=== PATIENT | male | born 1960 | race American Indian/Alaskan Native ===

== ENCOUNTER 2017-03-10 11:05 | Inpatient (IN) | payer MEDICARE, OTHER ==
[~2017-03-10] VITALS: Ht 160 cm; Wt 86.2 kg
[2017-03-10] VITALS (10 sets, daily range): BP systolic 150–281
[2017-03-10] MEDS ORDERED: KETOROLAC TROMETHAMINE 30 MG VIAL IVP ONE (11:15)
[2017-03-10] MEDS ORDERED: hydrALAZINE HCL 20 MG/ML VIAL IVP ONE ×3 (11:15→13:15)
[2017-03-10] MEDS ORDERED: PROCHLORPERAZINE EDISYLATE 10 MG/2 ML VIAL IVP ONE (11:30)
[2017-03-10 11:42] LABS: BASOPHILS # (AUTO) 0.1 K/uL (0.0-0.2); BASOPHILS % (AUTO) 0.6 % (0.0-2.0); EOSINOPHILS # (AUTO) 0.2 K/uL (0.0-0.4); EOSINOPHILS % (AUTO) 2.3 % (0.0-4.0); HEMATOCRIT 39.3 % (36-54); LYMPHOCYTES # (AUTO) 1.1 K/uL (1.0-5.5); LYMPHOCYTES % (AUTO) 12.6 % (20.5-51.5); MEAN CORPUSCULAR HEMOGLOBIN 30 pg (27-31); MEAN CORPUSCULAR HGB CONC 33 % (32-36); MEAN CORPUSCULAR VOLUME 92 fL (79.0-98.0); MONOCYTES # (AUTO) 0.6 K/uL (0.0-1.0); MONOCYTES % (AUTO) 6.5 % (1.7-9.3); NEUTROPHILS # (AUTO) 7.1 K/uL (1.8-7.7); PLATELET COUNT (AUTO) 164 K/uL (130-430); RED BLOOD CELL COUNT(AUTO) 4.28 MIL/uL (4.2-6.2); RED CELL DISTRIBUTION WIDTH 13.9 % (9.0-15.0); WHITE BLOOD COUNT (AUTO) 9.1 K/uL (4.8-10.8)
[2017-03-10] MEDS ORDERED: LORazepam 2 MG/ML VIAL (FOR ER USE) IVP ONE (11:45)
[2017-03-10 11:55] LABS: POTASSIUM 3.8 mmol/L (3.5-5.1)
[2017-03-10 11:56] LABS: CALCIUM 8.2 mg/dL (8.4-11.0)
[2017-03-10 11:57] LABS: INR 1.1 (0.80-1.20); PROTHROMBIN TIME 11.9 SECS (9.5-12.5)
[2017-03-10 11:58] LABS: CREATININE 8.05 mg/dL (0.55-1.30); TOTAL BILIRUBIN 1.3 mg/dL (0.0-1.0)
[2017-03-10 11:59] LABS: ALBUMIN 3.7 g/dL (3.4-4.8); TOTAL PROTEIN, SERUM 7.6 g/dL (6.4-8.3)
[2017-03-10] MEDS ORDERED: NITROGLYCERIN 1 INCH (GM) OINT. TP ONE (12:00)
[2017-03-10] MEDS ORDERED: fentaNYL CITRATE/PF 100 MCG/2 ML AMP IVP ONE ×2 (13:00→16:15)
[2017-03-10] MEDS ORDERED: ONDANSETRON HCL 4 MG/2 ML VIAL IVP ONE (13:00)
[2017-03-10] MEDS ORDERED: NITROGLYCERIN 250 ML IV ONE (13:45)
[2017-03-10 14:03] LABS: ABG TOTAL HEMOGLOBIN 13.6 G/dL (12.0-18.0); BLOOD GAS BASE EXCESS 2.4 mmol/L (-3.0-3.0); BLOOD GAS COHb% 1.2 % (0.5-1.5); BLOOD GAS HHB 5.5 % (0.0-6.0); BLOOD GAS PH 7.419 (7.350-7.450); BLOOD O2Hb% 92.9 % (94.0-97.0)
[2017-03-10] MEDS ORDERED: ETOMIDATE 20 MG/ 10 ML VIAL (AMIDATE) IVP ONE (15:00)
[2017-03-10] MEDS ORDERED: LEVOFLOXACIN 500 MG/D5W 100 ML IV ONE (15:00)
[2017-03-10] MEDS ORDERED: SUCCINYLCHOLINE CHLORIDE 20 MG/ML(QUELICIN) IVP ONE (15:00)
[2017-03-10] MEDS ORDERED: INSULIN REGULAR, HUMAN 10 UNITS/0.1 ML INJ IVP ONE (16:15)
[2017-03-10] MEDS ORDERED: COMMUNICATION ORDER XX ONE (16:30)
[2017-03-10] MEDS ORDERED: LORA-258 PO (16:42)
[2017-03-10] MEDS ORDERED: LORA-673 PO (16:42)
[2017-03-10] MEDS ORDERED: HYDR-1189 PO (16:42)
[2017-03-10] MEDS ORDERED: DULO20CA PO (16:42)
[2017-03-10] MEDS ORDERED: CEPH-568 PO (16:42)
[2017-03-10] MEDS ORDERED: CLON0.2T PO (16:42)
[2017-03-10] MEDS ORDERED: FUROSEMIDE 100 MG/10 ML VIAL IVP ONE (16:45)
[2017-03-10] MEDS ORDERED: NITROGLYCERIN IV PRN (17:15)
[2017-03-10] MEDS ORDERED: D5W IV PRN (17:15)
[2017-03-10] MEDS ORDERED: FUROSEMIDE 40 MG/4 ML VIAL IVP ONE (17:45)
[2017-03-10] MEDS ORDERED: INSULIN ASPART 100 UNITS/ML, 10 ML VIAL (NovoLOG) SUBCUT PRN ×2 (18:45→19:30)
[2017-03-10] MEDS ORDERED: HYDROcodone/ACETAMIN 5-325 MG TAB (NORCO/ VICODIN) PO SCH (19:00)
[2017-03-10] MEDS ORDERED: PANTOPRAZOLE SODIUM 40 MG/VIAL (PROTONIX) IVP SCH (19:30)
[2017-03-10] MEDS ORDERED: ONDANSETRON HCL 4 MG/2 ML VIAL IVP PRN (19:30)
[2017-03-10] MEDS ORDERED: LORazepam 1 MG TABLET PO PRN (21:00)
[2017-03-10] MEDS ORDERED: LORazepam 1 MG TABLET PO SCH (21:00)
[2017-03-10] MEDS ORDERED: cloNIDine HCL 0.2 MG TABLET PO SCH (21:00)
[2017-03-10] MEDS: INSULIN ASPART 100 UNITS/ML, 10 ML VIAL (NovoLOG) SUBCUT PRN (21:52)
[2017-03-10] MEDS: DULoxetine HCL 20 MG CAPSULE.DR PO SCH (21:58)
[2017-03-10] MEDS ORDERED: LABETALOL HCL 200 MG in NS 250 ML IV SCH (23:15)
[2017-03-10] MEDS ORDERED: levETIRAcetam 1,000 MG in NS 100 ML IV SCH (23:15)
[2017-03-11] VITALS (8 sets, daily range): BP systolic 118–157
[2017-03-11] MEDS ORDERED: LABETALOL 100 MG/ 20ML VIAL ONE (00:23)
[2017-03-11] MEDS: MORPHINE 2 MG/ML INJ. SYRINGE IVP ONE ×2 (01:00→01:05)
[2017-03-11] MEDS ORDERED: PROPOFOL DRIP 100 ML IV PRN (02:15)
[2017-03-11] MEDS ORDERED: MIDAZOLAM HCL 5 MG/5 ML VIAL ONE (02:22)
[2017-03-11] MEDS ORDERED: PROPOFOL DRIP 100 ML IV ONE (02:23)
[2017-03-11] MEDS ORDERED: niCARdipine 2.5 MG/ML, 10 ML VIAL (CARDENE) IV ONE (02:48)
[2017-03-11] MEDS: INSULIN ASPART 100 UNITS/ML, 10 ML VIAL (NovoLOG) SUBCUT PRN (03:10)
[2017-03-11 03:11] LABS: BLOOD GAS PH 7.383 (7.350-7.450)
[2017-03-11 03:12] LABS: ABG TOTAL HEMOGLOBIN 12.5 G/dL (12.0-18.0); BLOOD GAS BASE EXCESS 4.9 mmol/L (-3.0-3.0); BLOOD GAS COHb% 0.7 % (0.5-1.5); BLOOD O2Hb% 93.1 % (94.0-97.0)
[2017-03-11 05:13] LABS: BASOPHILS % (AUTO) 0.1 % (0.0-2.0); EOSINOPHILS # (AUTO) 0.1 K/uL (0.0-0.4); EOSINOPHILS % (AUTO) 0.6 % (0.0-4.0); HEMATOCRIT 31.3 % (36-54); HEMOGLOBIN 10.5 g/dL (14.0-18.0); LYMPHOCYTES # (AUTO) 0.4 K/uL (1.0-5.5); LYMPHOCYTES % (AUTO) 3.5 % (20.5-51.5); MEAN CORPUSCULAR HEMOGLOBIN 30 pg (27-31); MEAN CORPUSCULAR HGB CONC 33 % (32-36); MEAN CORPUSCULAR VOLUME 91 fL (79.0-98.0); MONOCYTES # (AUTO) 0.5 K/uL (0.0-1.0); MONOCYTES % (AUTO) 4.3 % (1.7-9.3); NEUTROPHILS # (AUTO) 11.4 K/uL (1.8-7.7); NEUTROPHILS % (AUTO) 91.5 % (40.0-70.0); PLATELET COUNT (AUTO) 165 K/uL (130-430); RED BLOOD CELL COUNT(AUTO) 3.44 MIL/uL (4.2-6.2); RED CELL DISTRIBUTION WIDTH 13.9 % (9.0-15.0); WHITE BLOOD COUNT (AUTO) 12.4 K/uL (4.8-10.8)
[2017-03-11 05:25] LABS: ALBUMIN 2.9 g/dL (3.4-4.8); CALCIUM 7.7 mg/dL (8.4-11.0); POTASSIUM 4.1 mmol/L (3.5-5.1); THYROID STIMULATING HORMONE 8.79 uIu/mL (0.34-4.82); TOTAL BILIRUBIN 1.1 mg/dL (0.0-1.0); TOTAL PROTEIN, SERUM 6.1 g/dL (6.4-8.3)
[2017-03-11] MEDS ORDERED: NACL 0.9% 1,000 ML IV SCH (06:00)
[2017-03-11 06:07] LABS: CREATININE 9.24 mg/dL (0.55-1.30)
[2017-03-11] MEDS ORDERED: LORazepam 2 MG/ML VIAL IVP ONE (07:15)
[2017-03-11] MEDS ORDERED: LORazepam 2 MG/ML VIAL ONE (07:16)
[2017-03-11] MEDS ORDERED: levETIRAcetam 500 MG in NS 100 ML IV SCH (09:00)
== END 2017-03-11 07:10 | disposition short-term general hospital (02) | DRG 208 ==
LOC: SED 11:05 → SIC 16:27
PROVIDERS: ADMIT Internal Medicine; ATTEND Internal Medicine
PROC: 5A09357 Assistance with Respiratory Ventilation, Less than 24 Consecutive Hours, Continuous Positive Airway Pressure (ICD-10-PCS; 2017-03-10)
PROC: 5A1935Z Respiratory Ventilation, Less than 24 Consecutive Hours (ICD-10-PCS; principal; 2017-03-11)
PROC: 0BH17EZ Insertion of Endotracheal Airway into Trachea, Via Natural or Artificial Opening (ICD-10-PCS; 2017-03-11)
DX: J96.90 Respiratory failure, unspecified, unspecified whether with hypoxia or hypercapnia (principal); J81.0 Acute pulmonary edema; N18.6 End stage renal disease; G93.40 Encephalopathy, unspecified; I60.7 Nontraumatic subarachnoid hemorrhage from unspecified intracranial artery; I12.0 Hypertensive chronic kidney disease with stage 5 chronic kidney disease or end stage renal disease; N25.81 Secondary hyperparathyroidism of renal origin; I16.1 Hypertensive emergency; E11.51 Type 2 diabetes mellitus with diabetic peripheral angiopathy without gangrene; E11.65 Type 2 diabetes mellitus with hyperglycemia; D63.1 Anemia in chronic kidney disease; E11.21 Type 2 diabetes mellitus with diabetic nephropathy; M54.2 Cervicalgia; M62.838 Other muscle spasm; E11.22 Type 2 diabetes mellitus with diabetic chronic kidney disease; Z88.8 Allergy status to other drugs, medicaments and biological substances; Z88.6 Allergy status to analgesic agent; Z99.2 Dependence on renal dialysis; Z79.4 Long term (current) use of insulin; Z89.512 Acquired absence of left leg below knee; Z89.421 Acquired absence of other right toe(s); Z79.899 Other long term (current) drug therapy; Z87.891 Personal history of nicotine dependence
CPT/HCPCS: 36415; 36600; 70450-TC; 71010; 72125-TC; 80053; 82803-TC; 82962; 83036; 83880; 84443-TC; 84484; 85025; 85610-TC; 85730-TC; 93005; 94002; 94660; 96372; 96374; 96375; 96376; 99291; C9113; J0330; J0360; J0780; J1815; J1885; J1940; J1953; J2060; J2250; J2270; J2405; J2704; J3010; J3490; J7030; J7050; J7060